=== PATIENT | male | born 1980 | race Two or more races ===

== ENCOUNTER 2022-03-31 13:07 | Emergency (ER) | payer MEDICAID ==
[~2022-03-31] VITALS: Ht 172.7 cm; Wt 77.1 kg
[2022-03-31] MEDS ORDERED: SODIUM CHLORIDE 0.9% 1,000 ML IV ONE (13:30)
[2022-03-31 14:02] LABS: Basophils # (auto) 0.1 10 ^3/uL (0-0.2); Eosinophils # (auto) 0.1 10 ^3/uL (0-0.8); Mean Corpuscular Volume 84.3 fL (80.0-100.0); Monocytes # (auto) 0.7 10 ^3/uL (0-1.3); Neutrophils # (auto) 8.6 10 ^3/uL (1.6-8.6); Nucleated Red Blood Cells % 0.1 %
[2022-03-31 14:04] LABS: Basophils % (auto) 0.7 % (0.0-2.0); Hematocrit 46.2 % (41.0-53.0); Hemoglobin 14.9 g/dL (13.5-17.5); Lymphocytes # (auto) 3.4 10 ^3/uL (0.4-5.4); Lymphocytes % (auto) 26.3 % (10.0-50.0); Mean Corpuscular Hemoglobin 27.1 pg (28.0-32.0); Mean Corpuscular Hgb Conc. 32.1 g/dL (32.0-36.0); Monocytes % (auto) 5.7 % (0.0-12.0); Neutrophils % (auto) 66.3 % (37.0-80.0); Red Blood Cells 5.48 10^6/uL (4.5-5.90); Red Cell Distribution Width 13.7 % (11.8-14.3)
[2022-03-31 14:13] LABS: Albumin 3.7 g/dL (3.4-5.0); Calcium 8.8 mg/dL (8.5-10.1); Potassium 3.9 mmol/L (3.5-5.1)
[2022-03-31 14:15] LABS: BUN/Creatinine Ratio 11.6
[2022-03-31 14:18] LABS: Bilirubin, Total 0.5 mg/dL (0.2-1.0); Total Protein 7.5 g/dL (6.4-8.2)
[2022-03-31] MEDS ORDERED: IBU600T PO (15:08)
[2022-03-31] MEDS ORDERED: TAM04C PO (15:08)
[2022-03-31] MEDS ORDERED: KETOROLAC TROMETH 30 MG/ML 1ML VIAL IV ONE (15:15)
[2022-03-31] MEDS ORDERED: TAMSULOSIN HYDROCHLORIDE 0.4 MG CAP PO ONE (15:15)
[2022-03-31 17:37] VITALS: BP 118/66
== END 2022-03-31 18:04 | disposition home or self-care (01) ==
LOC: ER 13:07
DX: N20.0 Calculus of kidney (principal)
CPT/HCPCS: 36415; 74176; 80053; 85025; 96361; 96374; 99284; J1885; J7030